=== PATIENT | male | born 2005 | race Caucasian/White ===

== ENCOUNTER 2024-08-27 23:47 | Emergency (ER) | payer SELFPAY ==
[2024-08-27 23:57] VITALS: BP 122/79; PULSE 117; RESP 18; TEMP 99.7; BMI 24.1
== END 2024-08-28 02:52 | disposition home or self-care (01) ==
LOC: FER 23:47
DX: F10.920 Alcohol use, unspecified with intoxication, uncomplicated (principal); Y90.9 Presence of alcohol in blood, level not specified
CPT/HCPCS: 99283-25